=== PATIENT | male | born 1985 | race Caucasian/White ===

== ENCOUNTER 2020-08-17 19:11 | Emergency (ER) | payer OTHER ==
[~2020-08-17] VITALS: Ht 180.3 cm; Wt 84.1 kg
[2020-08-17 19:46] VITALS: BP 124/96
[2020-08-17] MEDS ORDERED: ibuprofen tablet 400 MG TABLET PO ONE (20:20)
== END 2020-08-17 20:36 | disposition home or self-care (01) ==
LOC: ER 19:12
DX: R25.3 Fasciculation (principal); F15.90 Other stimulant use, unspecified, uncomplicated
CPT/HCPCS: 99283